=== PATIENT | female | born 1950 | race African-American/Black ===

== ENCOUNTER → 2018-05-09 | Day surgery (SDC) | payer OTHER, MEDICARE ==
[2018-05-08 10:18] LABS: BASOPHILS % 0.8 % (0.0-1.0); EOSINOPHILS # (AUTO) 0.1 (0.0-0.4); EOSINOPHILS % 1.8 % (0.0-6.0); HEMATOCRIT 30.4 % (34.2-44.1); HEMOGLOBIN 8.9 g/dL (12.0-16.0); LYMPHOCYTES # (AUTO) 1.8 (1.0-3.2); LYMPHOCYTES % 45.3 % (18.0-39.1); MEAN CORPUSCULAR HEMOGLOBIN 19.9 pg (28-32); MEAN CORPUSCULAR HGB CONC 29.3 g/dL (31-35); MONOCYTES # (AUTO) 0.5 (0.2-0.8); MONOCYTES % 12.5 % (4.4-11.3); NEUTROPHILS # (AUTO) 1.6 (2.1-6.9); NEUTROPHILS % 39.6 % (38.7-80.0); PLATELET COUNT 169 x10e3/uL (140-360); RED BLOOD COUNT 4.47 x10e6/uL (3.6-5.1); RED CELL DISTRIBUTION WIDTH 21.2 % (11.7-14.4)
[~2018-05-09] MED LIST: ATORVASTATIN CA20 MG PO; FENTANYL CITRATE/PF 100MCG/2 ML INJ ONE; HYDROCHLOROTHIA25 MG; MIDAZOLAM HCL 2 MG/2 ML VIAL ONE; OMEPRAZOLE40 MG; PROPOFOL IV EMULSION 10 MG/ML 50 ML VIAL ONE; ULTRAM50 MG PO; VASOTEC10 M1; XARELTO20 MG; [UNRECOGNIZED DRUG - OTHER]
--- OUTSIDE RECORDS SUMMARY | 2018-05-09 09:02 | XMS REPORT ---
Author Author Admin, [place] Organization [facility] Address [address] [facility] [facility] [address] [place] [address] Phone Allergies, Adverse Reactions, Alerts Allergy Name Reaction Description Start Date Severity Status Provider ENEIDA Critical Active Romeo Peres OD Conditions or Problems Problem Name Problem Code Onset Date Status Entry Date Provider Comment Standard Description Annotate Anemia 285.9 Active Cassia Luo MD Anemia, unspecified Pedal edema 782.3 Active Cassia Luo MD Edema Immunization update V15.9 Active Cassia Luo MD Unspecified personal history presenting hazards to health Age-related nuclear cataract, 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 Romeo Peres OD Senile nuclear sclerosis Essential hypertension 401.1 Active Cassia Luo MD Benign essential hypertension Hyperlipidemia 272.4 Active Cassia Luo MD Other and unspecified hyperlipidemia Pulmonary emboli 415.19 Active Deepak Bello MD Other pulmonary embolism and infarction SPECIAL SCREENING EXAMINATION OTH SPEC VIRAL DZ V73.89 Active Deepak Bello MD Screening examination for other specified viral diseases HIV INFECTION 042 Active Romeo Peres OD Human immunodeficiency virus [HIV] disease 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 Romeo Peres OD Hypermetropia HYPERTENSIVE RETINOPATHY 362.11 Active Romeo Peres OD Hypertensive retinopathy left eye PRESBYOPIA 367.4 Active Romeo Peres OD Presbyopia Regular astigmatism, bilateral 367.21 Active Romeo Peres OD Regular astigmatism Mammogram, Screening V76.12 Inactive Cassia Luo MD Other screening mammogram Mammogram, Screening ICD-V76.12 Inactive Cassia Luo MD ASTIGMATISM 367.20 Inactive Romeo Peres OD Astigmatism, unspecified HYPERMETROPIA 367.0 Inactive Romeo Peres OD Hypermetropia Medication List Medication Instructions Start Date Stop Date Generic Name NDC Status Provider Patient Instruction FLUZONE HIGH-DOSE 0.5 ML INTRAMUSCULAR SUSPENSION PREFILLED SYRINGE Pharmacist inject 0.5ml IM as a one time dose per standing protocol INFLUENZA VAC SPLIT HIGH-DOSE 74560237979 Active Teresa Reyna R.PH Active ENALAPRIL MALEATE 20 MG ORAL TABLET 1 by mouth every day for high blood pressure. ENALAPRIL MALEATE 50415221227 Active Cassia Luo MD Active GENVOYA 506-633-188-10 MG ORAL TABLET 1 tab by mouth daily with food [id number] 39234161196 Active Cassia Luo MD Active LIPITOR 40 MG ORAL TABLET 1 by mouth every pm ATORVASTATIN CALCIUM 70793003653 Active Cassia Luo MD Active OMEPRAZOLE 20 MG ORAL CAPSULE DELAYED RELEASE 1 by mouth every day in am OMEPRAZOLE 22162412640 Active Cassia Luo MD Active XARELTO 20 MG ORAL TABLET Take 1 tablet orally once daily. RIVAROXABAN 76938200036 Active Cassia Luo MD Active ATRIPLA TABLET ATRIPLA TABLET [id number] TABS Inactive ENALAPRIL MALEATE TABLET ENALAPRIL MALEATE TABLET ENALAPRIL MALEATE TABS Inactive HYDROCHLOROTHIAZIDE TABLET HYDROCHLOROTHIAZIDE TABLET HYDROCHLOROTHIAZIDE TABS Inactive XARELTO TABLET XARELTO TABLET RIVAROXABAN TABS Inactive ATRIPLA 600-200-300 MG ORAL TABLET 1 tablet by mouth at bedtime on empty stomach Cjlkmqair-Scmdbnktjy-Gtrrlawdf 10560784274 No Longer Active Cassia Luo MD Active ATRIPLA TABLET [id number]-GAVMCOOHTI-CLVMPBOMV TABS 74476712934 No Longer Active Cassia Luo MD Active ENALAPRIL MALEATE TABLET ENALAPRIL MALEATE TABS 05106238113 No Longer Active Cassia Luo MD Active HYDROCHLOROTHIAZIDE TABLET HYDROCHLOROTHIAZIDE TABS 79094095633 No Longer Active Cassia Luo MD Active XARELTO TABLET RIVAROXABAN TABS 53889337349 No Longer Active Cassia Luo MD Active Advance Directives Directive Description Start Date DISCUSSED - NO DECISION MADE Immunizations Vaccine Administration Date Value Standard Description influenza immunization (Flu Vax) has been administered given influenza virus vaccine, unspecified formulation influenza immunization (Flu Vax) has been administered given influenza virus vaccine, unspecified formulation Vital Signs Date Name Value Unit Range Description blood pressure, diastolic 83 mm[Hg] BP slater blood pressure, systolic 134 mm[Hg] BP sys height E&M 63 [in_us] Bdy height pulse rate E&M 72 /min Heart rate temperature E&M 98.3 [degF] Body temperature weight E&M 191.13 [lb_av] Weight Measured blood pressure, diastolic 79 mm[Hg] BP slater blood pressure, systolic 128 mm[Hg] BP sys height E&M 63 [in_us] Bdy height pulse rate E&M 81 /min Heart rate temperature E&M 99.1 [degF] Body temperature weight E&M 193.25 [lb_av] Weight Measured blood pressure, diastolic 87 mm[Hg] BP slater blood pressure, systolic 142 mm[Hg] BP sys height E&M 63 [in_us] Bdy height pulse rate E&M 94 /min Heart rate temperature E&M 98.9 [degF] Body temperature weight E&M 189.13 [lb_av] Weight Measured Diagnostic Results Date Name Value Unit Range Description Lab Report: LIPID PANEL, HDL CHOLESTEROL, TRIGLYCERIDES, LDL-CHOLESTEROL ... - Chemistry source BLOOD Office Visit: Adult Followup/rm # 17 - Chemistry occult blood stool sample #2 negative Lab Report: CD4/CD8 Ratio Profile, Comp. Metabolic Panel (14), Lipid Velazquez ... - Chemistry very low density lipoproteins 17 mg/dL 5-40 Lab Report: LIPID PANEL, HDL CHOLESTEROL, TRIGLYCERIDES, LDL-CHOLESTEROL ... - Chemistry cholesterol, non-HDL, total 144 MG/DL (CALC) mg/dL hepatitis B surface antigen NON-REACTIVE NON-REACTIVE Lab Report: HIV 1 RNA, QUANTITATIVE REAL TIME PCR - Chemistry HIV-1 RNA (log 10) 1.48 Log copies/mL <1.30 Lab Report: CD4/CD8 Ratio Profile, Comp. Metabolic Panel (14), RNA, Real ... - Chemistry chloride, serum 107 mmol/L 96-106 Lab Report: LIPID PANEL, HDL CHOLESTEROL, TRIGLYCERIDES, LDL-CHOLESTEROL ... - Microbiology hepatitis A antibody, total REACTIVE NON-REACTIVE Lab Report: CD4/CD8 Ratio Profile, Comp. Metabolic Panel (14), RNA, Real ... - Chemistry urea nitrogen, blood 11 mg/dL 8-27 Lab Report: LIPID PANEL, HDL CHOLESTEROL, TRIGLYCERIDES, LDL-CHOLESTEROL ... - Hematology Absolute Eosinophil count 61 {Cells}/uL 15-500 Lab Report: LIPID PANEL, HDL CHOLESTEROL, TRIGLYCERIDES, LDL-CHOLESTEROL ... - Serology human leukocyte antigen B57 Negative Lab Report: CD4/CD8 Ratio Profile, Comp. Metabolic Panel (14), RNA, Real ... - Hematology mean corpuscular hemoglobin concentration, RBC 27.9 G/DL % 31.5-35.7 erythrocyte (RBC) count 3.76 X10E6/UL 10*6/mm3 3.77-5.28 Lab Report: LIPID PANEL, HDL CHOLESTEROL, TRIGLYCERIDES, LDL-CHOLESTEROL ... - Chemistry cholesterol/HDL ratio, serum, percent 3.7 (calc) < OR=5.0 Lab Report: CD4/CD8 Ratio Profile, Comp. Metabolic Panel (14), RNA, Real ... - Serology hepatitis C antibody, serum <0.1 0.0-0.9 Lab Report: CD4/CD8 Ratio Profile, Comp. Metabolic Panel (14), RNA, Real ... - Chemistry absolute CD8 562 978-194 8272/10/15 Absolute Neutrophils 1.6 X10E3/UL 10*3/uL 1.4-7.0 Lab Report: LIPID PANEL, HDL CHOLESTEROL, TRIGLYCERIDES, LDL-CHOLESTEROL ... - Hematology mean platelet volume 12.0 fL 7.5-12.5 Lab Report: CD4/CD8 Ratio Profile, Comp. Metabolic Panel (14), Lipid Velazquez ... - Chemistry LDL cholesterol, serum 98 mg/dL 0-99 Lab Report: CD4/CD8 Ratio Profile, Comp. Metabolic Panel (14), RNA, Real ... - Chemistry urea nitrogen/creatinine ratio, serum 14 12-28 Lab Report: CD4/CD8 Ratio Profile, Comp. Metabolic Panel (14), RNA, Real ... - Hematology mean corpuscular volume, RBC 69 fL 79-97 Lab Report: CD4/CD8 Ratio Profile, Comp. Metabolic Panel (14), Lipid Velazquez ... - Chemistry HDL cholesterol, serum 66 mg/dL >39 Lab Report: CD4/CD8 Ratio Profile, Comp. Metabolic Panel (14), RNA, Real ... - Hematology monocytes as percent of blood leukocytes 9 % Not Estab. Office Visit: Adult Followup/rm # 17 - Chemistry occult blood stool sample #3 negative Lab Report: CD4/CD8 Ratio Profile, Comp. Metabolic Panel (14), RNA, Real ... - Chemistry albumin/globulin ratio, serum 1.3 1.2-2.2 creatinine, serum 0.79 mg/dL 0.57-1.00 Lab Report: LIPID PANEL, HDL CHOLESTEROL, TRIGLYCERIDES, LDL-CHOLESTEROL ... - Hematology Absolute Monocyte count 313 {Cells}/uL 200-950 Lab Report: CD4/CD8 Ratio Profile, Comp. Metabolic Panel (14), Lipid Velazquez ... - Chemistry cholesterol, serum 181 mg/dL 100-199 Lab Report: CD4/CD8 Ratio Profile, Comp. Metabolic Panel (14), RNA, Real ... - Chemistry bilirubin, serum, total <0.2 mg/dL mg/dL 0.0-1.2 Lab Report: CD4/CD8 Ratio Profile, Comp. Metabolic Panel (14), RNA, Real ... - Hematology Eosinophil Absolute Count 0.1 X10E3/UL 10*3/uL 0.0-0.4 Lab Report: CHLAMYDIA/N. GONORRHOEAE RNA, TMA - Lab chlamydia DNA probe NOT DETECTED NOT DETECTED Lab Report: CD4/CD8 Ratio Profile, Comp. Metabolic Panel (14), RNA, Real ... - Chemistry aspartate aminotransferase (SGOT), serum 17 U/L 0-40 Lab Report: CD4/CD8 Ratio Profile, Comp. Metabolic Panel (14), RNA, Real ... - Hematology red blood cell distribution width 16.8 % 12.3-15.4 Lab Report: LIPID PANEL, HDL CHOLESTEROL, TRIGLYCERIDES, LDL-CHOLESTEROL ... - Chemistry globulins, serum, total 3.4 G/DL (CALC) g/dL 1.9-3.7 Lab Report: CD4/CD8 Ratio Profile, Comp. Metabolic Panel (14), RNA, Real ... - Hematology leukocyte count, blood 4.0 X10E3/UL 10*3/mm3 3.4-10.8 Lab Report: CD4/CD8 Ratio Profile, Comp. Metabolic Panel (14), RNA, Real ... - Chemistry potassium, serum 3.8 mmol/L 3.5-5.2 albumin, serum 4.3 g/dL 3.6-4.8 immature granulocytes, percentage of total cells, blood 0 % Not Estab. Lab Report: CD4/CD8 Ratio Profile, Comp. Metabolic Panel (14), RNA, Real ... - Hematology lymphocyte count, blood, automated 2.0 X10E3/UL 10*3/mm3 0.7-3.1 hematocrit, blood 25.8 % 34.0-46.6 Lab Report: CHLAMYDIA/N. GONORRHOEAE RNA, TMA - Microbiology Neisseria gonorrhoeae DNA probe NOT DETECTED NOT DETECTED Lab Report: CD4/CD8 Ratio Profile, Comp. Metabolic Panel (14), RNA, Real ... - Chemistry sodium, serum 144 mmol/L 134-144 Lab Report: CD4/CD8 Ratio Profile, Comp. Metabolic Panel (14), RNA, Real ... - Hematology neutrophils as percent of blood leukocytes 40 % Not Estab. Office Visit: Adult Followup/ # 17 - Chemistry occult blood, stool (E&M) negative Lab Report: CD4/CD8 Ratio Profile, Comp. Metabolic Panel (14), RNA, Real ... - Hematology basophils as percent of blood leukocytes 1 % Not Estab. Lab Report: CD4/CD8 Ratio Profile, Comp. Metabolic Panel (14), RNA, Real ... - Serology HIV-1RNA, serum, by PCR, quantitative <20 copies/mL {Copies}/mL rapid plasma reagin antibody, serum Non Reactive Non Reactive Lab Report: CD4/CD8 Ratio Profile, Comp. Metabolic Panel (14), RNA, Real ... - Chemistry CD4/CD8 ratio 1.28 0.92-3.72 carbon dioxide, venous blood 24 mmol/L 20-29 Lab Report: LIPID PANEL, HDL CHOLESTEROL, TRIGLYCERIDES, LDL-CHOLESTEROL ... - Chemistry Absolute Neutrophil count 1390 {Cells}/uL 8688-5183 Lab Report: LIPID PANEL, HDL CHOLESTEROL, TRIGLYCERIDES, LDL-CHOLESTEROL ... - Serology hepatitis B core antibody, total NON-REACTIVE NON-REACTIVE Lab Report: CD4/CD8 Ratio Profile, Comp. Metabolic Panel (14), Lipid Velazquez ... - Chemistry triglyceride, serum, fasting 87 mg/dL 0-149 Lab Report: CD4/CD8 Ratio Profile, Comp. Metabolic Panel (14), RNA, Real ... - Chemistry calcium, serum 9.2 mg/dL 8.7-10.3 alanine aminotransferase (SGPT), serum 15 U/L 0-32 Lab Report: CD4/CD8 Ratio Profile, Comp. Metabolic Panel (14), RNA, Real ... - Hematology mean corpuscular hemoglobin, RBC 19.1 pg 26.6-33.0 Lab Report: CD4/CD8 Ratio Profile, Comp. Metabolic Panel (14), RNA, Real ... - Chemistry protein, total, serum 7.5 g/dL 6.0-8.5 alkaline phosphatase, serum 62 U/L 39-117 Lab Report: CD4/CD8 Ratio Profile, Comp. Metabolic Panel (14), RNA, Real ... - Hematology T-helper cells (CD4) as percent of blood lymphocytes 36.1 % 30.8-58.5 hemoglobin, blood 7.2 g/dL 11.1-15.9 T-suppressor cells (CD8) as percent of blood lymphocytes 28.1 % 12.0-35.5 lymphocytes as percent of blood leukocytes 48 % Not Estab. Lab Report: LIPID PANEL, HDL CHOLESTEROL, TRIGLYCERIDES, LDL-CHOLESTEROL ... - Chemistry hemoglobin A1C, blood, as % of total hemoglobin 6.1 % OF TOTAL HGB % <5.7 Lab Report: LIPID PANEL, HDL CHOLESTEROL, TRIGLYCERIDES, LDL-CHOLESTEROL ... - Hematology eosinophils as percent of blood leukocytes 1.7 % Lab Report: CD4/CD8 Ratio Profile, Comp. Metabolic Panel (14), RNA, Real ... - Genetics/fertility eGFR if 89 mL/min/1.73m2 >59 Lab Report: CD4/CD8 Ratio Profile, Comp. Metabolic Panel (14), RNA, Real ... - Hematology basophil count, absolute 0.0 x10E3/uL 0.0-0.2 Lab Report: LIPID PANEL, HDL CHOLESTEROL, TRIGLYCERIDES, LDL-CHOLESTEROL ... - Lab Hepatitis C Antibody, Signal to Cut-Off 0.03 <1.00 Lab Report: CD4/CD8 Ratio Profile, Comp. Metabolic Panel (14), RNA, Real ... - Chemistry globulin, serum 3.2 1.5-4.5 Estimated Glomerular Filtration Rate (calc) 77 mL/min/1.73m2 >59 Lab Report: LIPID PANEL, HDL CHOLESTEROL, TRIGLYCERIDES, LDL-CHOLESTEROL ... - Chemistry lymphocytes, absolute 1796 CELLS/UL 10*3/uL 850-3900 Lab Report: LIPID PANEL, HDL CHOLESTEROL, TRIGLYCERIDES, LDL-CHOLESTEROL ... - Serology hepatitis B surface antibody REACTIVE NON-REACTIVE Lab Report: CD4/CD8 Ratio Profile, Comp. Metabolic Panel (14), RNA, Real ... - Hematology eosinophils as percent of blood leukocytes 2 % Not Estab. Lab Report: CD4/CD8 Ratio Profile, Comp. Metabolic Panel (14), RNA, Real ... - Chemistry blood glucose, random 98 mg/dL 65-99 Lab Report: CD4/CD8 Ratio Profile, Comp. Metabolic Panel (14), RNA, Real ... - Hematology T-helper cells (CD4) count 722 /UL uL 359-1519 monocyte count, blood, automated 0.4 X10E3/UL 10*3/uL 0.1-0.9 platelet count 223 X10E3/UL 10*3/mm3 150-379 Encounters Date Encounter Provider Code Facility 15:17:10 CDT Est Patient Detailed - [id number] Cassia Luo MD CPT-16228 [facility] 14:39:19 CDT Est Patient Detailed - [id number] Cassia Luo MD CPT-41392 [facility] 22:36:17 ASSISTANT TODDLER TEACHER Est Patient Detailed - [id number] Cassia Luo MD CPT-25604 [facility] [facility] 14:52:16 CDT Est Patient Detailed - [id number] Cassia Luo MD CPT-43159 [facility] [facility] 13:00:00 CDT New Patient Comprehensive - [id number] Cassia Luo MD CPT-71954 [facility] [facility] Procedures Code Procedure Name Date Entry Date Standard Description CPT-79318 Est Patient Comprehensive Opt - 97657 16:11:47 CDT CPT-25173 Est Patient Intermediate Opt - 38006 15:42:20 CDT CPT-69768 INFLUENZA VACCINE QUADRIVALENT 3 YRS PLUS IM 14:52:26 CDT CPT-34245 Dispensing Visit (Non-Billable) 12:13:00 CDT CPT-85215 Est Patient Comprehensive Opt - 52751 11:15:22 CDT CPT-52174 Est Patient Intermediate Opt - 99917 10:05:54 CDT CPT-96680 Handling of specimen for transfer 13:58:39 CDT CPT-74098 Venipuncture 13:58:39 CDT CPT-60023 Est Patient Intermediate Opt - 45151 15:54:16 ASSISTANT TODDLER TEACHER CPT-17064 New Patient Intermediate Opt - 98790 14:48:45 ASSISTANT TODDLER TEACHER
--- OUTSIDE RECORDS SUMMARY | 2018-05-09 09:03 | XMS REPORT ---
[facility] Address Unknown Phone Unavailable Care Team Providers Care Radiography Technician Name Role Phone Unavailable Unavailable Payers Payer Name Policy Type Policy Number Effective Date Expiration Date Problems This patient has no known problems. Allergies, Adverse Reactions, Alerts Allergy Name Allergy Type Status Severity Reaction(s) Onset Date Inactive Date Treating Clinician Comments quinine DA Active MD 2018-03-18 00:00:00 quinine DA Active U 2012-04-22 00:00:00 Medications This patient has no known medications.
[2018-05-09 12:15] VITALS: BP 140/77
== END | disposition home or self-care (01) ==
LOC: OR 09:00
PROVIDERS: ATTEND Internal Medicine Gastroenterology
DX: D64.9 Anemia, unspecified (principal); K29.70 Gastritis, unspecified, without bleeding; K57.30 Diverticulosis of large intestine without perforation or abscess without bleeding; K64.8 Other hemorrhoids; K21.9 Gastro-esophageal reflux disease without esophagitis; K31.89 Other diseases of stomach and duodenum; I10 Essential (primary) hypertension; I49.3 Ventricular premature depolarization; E78.00 Pure hypercholesterolemia, unspecified; Z21 Asymptomatic human immunodeficiency virus [HIV] infection status; Z01.810 Encounter for preprocedural cardiovascular examination; Z01.812 Encounter for preprocedural laboratory examination; Z79.02 Long term (current) use of antithrombotics/antiplatelets; Z68.32 Body mass index [BMI] 32.0-32.9, adult; Z86.718 Personal history of other venous thrombosis and embolism
CPT/HCPCS: 36415; 43239; 45378; 85025; 88305; 88312; 93005; J2250; J2704